=== PATIENT | female | born 1975 | race Caucasian/White ===

== ENCOUNTER 2017-05-28 12:42 | Observation (INO) | payer BC ==
[2017-05-28] MEDS ORDERED: SODIUM CHLORIDE 0.9% 1,000 ML IV STA (13:15)
[2017-05-28] MEDS ORDERED: ONDANSETRON 4 MG/2 ML VIAL IVP STA ×2 (13:15→14:36)
[2017-05-28] MEDS ORDERED: ACETAMINOPHEN IV (For NPO) 1,000 MG in EMPTY BAG 1 BAG IVPB STA (13:16)
--- NOTE | 2017-05-28 13:18 | ED ---
General Adult HPI - General Source: patient, RN notes reviewed Mode of arrival: wheelchair Limitations: no limitations <Alexis Guido - Last Filed: 05/28/17 14:51> <Robbie Dior - Last Filed: 05/28/17 15:48> - General Chief complaint: Abdominal Pain Stated complaint: Abdominal pain/nausea Time Seen by Provider: 05/28/17 13:06 - History of Present Illness Initial comments: Patient is a 42-year-old female who presents emergency room today with a chief complaint of increased abdominal pain that started yesterday. Doesn't look pain the upper abdomen. States began having symptoms of nausea vomiting this morning. States symptoms started after eating pizza last night. She should never had similar symptoms in the past. She denies any other complaints or associated symptoms at this time. Patient denies any recent fever, chills, shortness of breath, chest pain, back pain, numbness or tingling, dysuria or hematuria, constipation or diarrhea, headaches or visual changes, or any other complaints. (Alexis Guido) - Related Data Home Medications Medication Instructions Recorded Confirmed LORazepam [Ativan] 2 mg PO BID PRN 06/25/15 05/28/17 Sertraline [Zoloft] 150 mg PO HS 06/25/15 05/28/17 buPROPion XL [Wellbutrin XL] 150 mg PO HS 06/25/15 05/28/17 Acetaminophen Tab [Tylenol Tab] 1,000 mg PO Q6HR PRN 05/28/17 05/28/17 Calcium Carbonate [Tums] 1,000 mg PO TID PRN 05/28/17 05/28/17 Allergies Allergy/AdvReac Type Severity Reaction Status Date / Time No Known Allergies Allergy Verified 05/28/17 13:03 Review of Systems ROS Other: All systems not noted in ROS Statement are negative. <Alexis Guido - Last Filed: 05/28/17 14:51> ROS Other: All systems not noted in ROS Statement are negative. <Robbie Dior - Last Filed: 05/28/17 15:48> ROS Statement: Those systems with pertinent positive or pertinent negative responses have been documented in the HPI. Past Medical History Past Medical History: No Reported History Additional Past Medical History / Comment(s): ADHD, 2 TOP FRONT TEETH ARE VENEERS History of Any Multi-Drug Resistant Organisms: None Reported Past Surgical History: No Surgical Hx Reported Additional Past Surgical History / Comment(s): LAPROSCOPY Past Anesthesia/Blood Transfusion Reactions: No Reported Reaction Past Psychological History: ADD/ADHD, Anxiety Smoking Status: Never smoker Past Alcohol Use History: Occasional Past Drug Use History: None Reported - Past Family History Mother Family Medical History: No Reported History Father Family Medical History: Coronary Artery Disease (CAD), Hypertension Additional Family Medical History / Comment(s): CARDIAC STENTS,STROKE BEHIND HIS EYE <Alexis Guido - Last Filed: 05/28/17 14:51> General Exam Limitations: no limitations <Alexis Guido - Last Filed: 05/28/17 14:51> <Robbie Dior - Last Filed: 05/28/17 15:48> - General Exam Comments Initial Comments: General: The patient is awake and alert, in mild distress. Eye: Pupils are equal, round and reactive to light, extra-ocular movements are intact. No nystagmus. There is normal conjunctiva bilaterally. No signs of icterus. Ears, nose, mouth and throat: There are moist mucous membranes and no oral lesions. Neck: The neck is supple, there is no tenderness or JVD. Cardiovascular: There is a regular rate and rhythm. No murmur, rub or gallop is appreciated. Respiratory: Lungs are clear to auscultation, respirations are non-labored, breath sounds are equal. No wheezes, stridor, rales, or rhonchi. Gastrointestinal: Normal appearance abdomen. Normal bowel sounds. Abdomen soft on palpation. Patient does have tenderness epigastrically in greatest in right upper quadrant. No rebound tenderness. No guarding. Musculoskeletal: Normal ROM, no tenderness. Strength 5/5. Sensation intact. Pulses equal bilaterally 2+. Neurological: A&O x 3. CN II-XII intact, There are no obvious motor or sensory deficits. Coordination appears grossly intact. Speech is normal. Skin: Skin is warm and dry and no rashes or lesions are noted. Psychiatric: Cooperative, appropriate mood & affect, normal judgment. (Alexis Guido) Course <Alexis Guido - Last Filed: 05/28/17 14:51> <Robbie Dior - Last Filed: 05/28/17 15:48> Vital Signs 05/28/17 05/28/17 12:47 15:38 Temperature 97.7 F 97.2 F L Pulse Rate 79 93 Respiratory 20 18 Rate Blood Pressure 160/93 152/72 O2 Sat by Pulse 96 96 Oximetry - Reevaluation(s) Reevaluation #1: 05/28/17 15:47 PA supervision: I did personally do a [id number] evaluation the patient did discuss [employer] her and her . Patient does demonstrate evidence of cholelithiasis with sludge as well as right upper quadrant pain to palpation. I did discuss the case with surgery on-call patient will be admitted she'll be nothing by mouth. (Robbie Dior) Medical Decision Making - Lab Data Result diagrams: 05/28/17 13:33 05/28/17 13:33 <Alexis Guido - Last Filed: 05/28/17 14:51> - Lab Data Result diagrams: 05/28/17 13:33 05/28/17 13:33 <Robbie Dior - Last Filed: 05/28/17 15:48> - Medical Decision Making The patient lives been reviewed are unremarkable. Patient still experiencing some discomfort in the epigastric and right upper quadrants. Patient is tender in the right upper quadrant. Patient ultrasound does show evidence of a tumefactive gallbladder with sludge. (Alexis Guido) - Lab Data Lab Results 05/28/17 05/28/17 05/28/17 Range/Units 13:33 13:33 13:42 WBC 9.5 (3.8-10.6) k/uL RBC 4.19 (3.80-5.40) m/uL Hgb 13.2 (11.4-16.0) gm/dL Hct 36.1 (34.0-46.0) % MCV 86.2 (80.0-100.0) fL MCH 31.5 (25.0-35.0) pg MCHC 36.5 (31.0-37.0) g/dL RDW 13.1 (11.5-15.5) % Plt Count 276 (150-450) k/uL Neutrophils % 76 % Lymphocytes % 15 % Monocytes % 6 % Eosinophils % 1 % Basophils % 0 % Neutrophils # 7.2 (1.3-7.7) k/uL Lymphocytes # 1.4 (1.0-4.8) k/uL Monocytes # 0.6 (0-1.0) k/uL Eosinophils # 0.1 (0-0.7) k/uL Basophils # 0.0 (0-0.2) k/uL Sodium 142 (137-145) mmol/L Potassium 4.1 (3.5-5.1) mmol/L Chloride 107 (98-107) mmol/L Carbon Dioxide 24 (22-30) mmol/L Anion Gap 11 mmol/L BUN 11 (7-17) mg/dL Creatinine 0.69 (0.52-1.04) mg/dL Est GFR (CKD-EPI)AfAm >90 (>60 ml/min/1.73 sqM) Est GFR (CKD-EPI)NonAf >90 (>60 ml/min/1.73 sqM) Glucose 106 H (74-99) mg/dL Calcium 9.7 (8.4-10.2) mg/dL Total Bilirubin 0.3 (0.2-1.3) mg/dL AST 19 (14-36) U/L ALT 25 (9-52) U/L Alkaline Phosphatase 63 (38-126) U/L Total Protein 7.6 (6.3-8.2) g/dL Albumin 4.3 (3.5-5.0) g/dL Amylase 44 (30-110) U/L Lipase 78 (23-300) U/L Urine Color Yellow Urine Appearance Clear (Clear) Urine pH 5.5 (5.0-8.0) Ur Specific [place] 1.018 (1.001-1.035) Urine Protein Negative (Negative) Urine Glucose (UA) Negative (Negative) Urine Ketones Negative (Negative) Urine Blood Trace H (Negative) Urine Nitrite Negative (Negative) Urine Bilirubin Negative (Negative) Urine Urobilinogen <2.0 (<2.0) mg/dL Ur Leukocyte Esterase Negative (Negative) Urine RBC <1 (0-5) /hpf Ur Squamous Epith Cells <1 (0-4) /hpf Urine Mucus Occasional H (None) /hpf Disposition Time of Disposition: 14:53 <Alexis Guido - Last Filed: 05/28/17 14:51> <Robbie Dior - Last Filed: 05/28/17 15:48> Clinical Impression: Cholelithiasis Disposition: ADMITTED IP TO THIS [facility] Condition: Good Referrals: Lupe Kapoor III, MD [Primary Care Provider] - 1-2 days
[2017-05-28 13:48] LABS: Basophils % (A) 0 %; Eosinophils # (A) 0.1 k/uL (0-0.7); Eosinophils % (A) 1 %; HCT 36.1 % (34.0-46.0); HGB 13.2 gm/dL (11.4-16.0); Lymphocytes # (A) 1.4 k/uL (1.0-4.8); Lymphocytes % (A) 15 %; MCH 31.5 pg (25.0-35.0); MCHC 36.5 g/dL (31.0-37.0); MCV 86.2 fL (80.0-100.0); Mean Platelet Volume 6.6; Monocytes # (A) 0.6 k/uL (0-1.0); Monocytes % (A) 6 %; Neutrophils # (A) 7.2 k/uL (1.3-7.7); Neutrophils % (A) 76 %; Platelet Count 276 k/uL (150-450); RBC 4.19 m/uL (3.80-5.40); RDW 13.1 % (11.5-15.5); WBC 9.5 k/uL (3.8-10.6)
[2017-05-28 13:59] LABS: ALT 25 U/L (9-52); AST 19 U/L (14-36); Albumin 4.3 g/dL (3.5-5.0); Alkaline Phosphatase 63 U/L (38-126); Amylase 44 U/L (30-110); Anion Gap 11 mmol/L; Blood Urea Nitrogen 11 mg/dL (7-17); Calcium 9.7 mg/dL (8.4-10.2); Carbon Dioxide 24 mmol/L (22-30); Chloride 107 mmol/L (98-107); Glucose 106 mg/dL (74-99); Lipase 78 U/L (23-300); Potassium 4.1 mmol/L (3.5-5.1); Sodium 142 mmol/L (137-145); Total Bilirubin 0.3 mg/dL (0.2-1.3); Total Protein 7.6 g/dL (6.3-8.2)
[2017-05-28 14:01] LABS: Appearance,Urine Clear (Clear); Bilirubin,Urine Negative (Negative); Blood,Urine Trace (Negative); Color,Urine Yellow; Glucose,Urine (UA) Negative (Negative); Ketones,Urine Negative (Negative); Leukocyte Esterase,Urine Negative (Negative); Mucus,Urine Occasional /hpf; Nitrite,Urine Negative (Negative); PH, Urine 5.5 (5.0-8.0); Protein,Urine Negative (Negative); RBC,Urine <1 /hpf (0-5); Specific Gravity,Urine 1.018 (1.001-1.035); Squamous Epithelial Cell,Urine <1 /hpf (0-4); Urobilinogen,Urine <2.0 mg/dL (<2.0)
--- NOTE | 2017-05-28 14:20 | US ---
EXAMINATION TYPE: US abdomen limited DATE OF EXAM: 05/28/2017 COMPARISON: NONE CLINICAL HISTORY: Pain. epigastric pain, N/V EXAM MEASUREMENTS: Liver Length: 19.8 cm Gallbladder Wall: 0.3 cm CBD: 0.6 cm Right Kidney: 9.6 x 3.8 x 5.2 cm Pancreas: only head portion seen wnl, the rest is obscured by bowel gas Liver: difficult to penetrate, enlarged. This most commonly relates to hepatic steatosis and limits evaluation for underlying hepatic masses. Gallbladder: multiple mobile shadowing stones and sludge ball seen Evidence for sonographic Aquino's sign: Yes CBD: wnl Right Kidney: No hydronephrosis or masses seen IMPRESSION: 1. Mobile tumefactive gallbladder sludge and cholelithiasis without sonographic evidence of acute cho lecystitis. 2. Findings most compatible with mild degree of hepatic steatosis.
[2017-05-28] MEDS ORDERED: MORPHINE SULFATE 4 MG/ML SYRINGE IV STA (14:36)
[2017-05-28] MEDS ORDERED: NALOXONE 0.4 MG/ML 1 ML VIAL IV PRN (14:54)
[2017-05-28] MEDS: SODIUM CHLORIDE 0.9% 1,000 ML IV ONE (15:29)
[2017-05-28 16:30] VITALS: BMI 35.6
[2017-05-28] MEDS ORDERED: CALCIUM CARBONATE 500 MG CHEWABLE PO PRN (17:09)
[2017-05-28] MEDS ORDERED: LORazepam 1 MG TAB PO PRN (17:09)
[2017-05-28] MEDS: SERTRALINE 50 MG TAB PO SCH (20:02)
[2017-05-28] MEDS: buPROPion XL 300 MG TAB.ER.24H PO SCH (20:02)
[2017-05-28] MEDS: MORPHINE SULFATE/PF 10MG/10ML VL IV PRN (20:02)
[2017-05-28] MEDS: PANTOPRAZOLE 40 MG/10 ML VIAL IVP SCH (22:15)
[2017-05-28] MEDS: HEPARIN SODIUM,PORCINE 5,000 UNIT/ML 1 ML VIAL SQ SCH (22:15)
[2017-05-29] MEDS: MORPHINE SULFATE/PF 10MG/10ML VL IV PRN ×4 (00:50→20:36)
[2017-05-29] MEDS: ONDANSETRON 4 MG/2 ML VIAL IVP PRN ×3 (01:46→20:40)
[2017-05-29 06:36] LABS: Basophils % (A) 0 %; Eosinophils # (A) 0.2 k/uL (0-0.7); Eosinophils % (A) 3 %; HCT 32.3 % (34.0-46.0); HGB 11.1 gm/dL (11.4-16.0); Lymphocytes # (A) 2.4 k/uL (1.0-4.8); Lymphocytes % (A) 33 %; MCH 30.2 pg (25.0-35.0); MCHC 34.4 g/dL (31.0-37.0); MCV 87.7 fL (80.0-100.0); Mean Platelet Volume 7.3; Monocytes # (A) 0.3 k/uL (0-1.0); Monocytes % (A) 4 %; Neutrophils # (A) 4.1 k/uL (1.3-7.7); Neutrophils % (A) 57 %; Platelet Count 222 k/uL (150-450); RBC 3.69 m/uL (3.80-5.40); RDW 13.1 % (11.5-15.5); WBC 7.2 k/uL (3.8-10.6)
[2017-05-29 07:04] LABS: ALT 30 U/L (9-52); AST 15 U/L (14-36); Albumin 3.5 g/dL (3.5-5.0); Alkaline Phosphatase 54 U/L (38-126); Anion Gap 6 mmol/L; Blood Urea Nitrogen 6 mg/dL (7-17); Calcium 8.6 mg/dL (8.4-10.2); Carbon Dioxide 26 mmol/L (22-30); Chloride 107 mmol/L (98-107); Glucose 89 mg/dL (74-99); Potassium 3.7 mmol/L (3.5-5.1); Sodium 139 mmol/L (137-145); Total Bilirubin 0.2 mg/dL (0.2-1.3); Total Protein 6.4 g/dL (6.3-8.2)
[2017-05-29] MEDS: ACETAMINOPHEN TAB 325 MG TAB PO PRN ×2 (07:10→13:38)
[2017-05-29] MEDS: PANTOPRAZOLE 40 MG/10 ML VIAL IVP SCH (08:10)
[2017-05-29] MEDS: HEPARIN SODIUM,PORCINE 5,000 UNIT/ML 1 ML VIAL SQ SCH ×2 (08:11→20:52)
--- NOTE | 2017-05-29 08:52 | CONS ---
CONSULTATION DATE OF SERVICE: 05/28/2017. THE REASON FOR CONSULTATION: Advice regarding anxiety depression and other medical issues requested by Dr. Macias. HISTORY OF PRESENT ILLNESS: This is 42-year-old woman with a past medical history of ADHD, history of ADD, history of anxiety, depression being followed by Dr. Kapoor and Marichuy Vinson in the outpatient setting was admitted with abdominal pain to [facility]. The pain started yesterday which is in the right upper quadrant and associated with some nausea, vomiting. Patient came to [facility] and ultrasound of the abdomen showed mobile tumefactive gallbladder sludge and cholelithiasis without any sonographic evidence of acute cholecystitis. Patient was evaluated by Surgery, Dr. Macias and admitted for further evaluation. There is no history of fever, rigors, chills. There is no headache, loss of consciousness, chest pain, palpitations, hematochezia or melena. PAST MEDICAL HISTORY: ADD, ADHD, anxiety and depression. MEDICATIONS: Medications prior to admission: 1. Wellbutrin XL 300 mg q.h.s. 2. Zoloft 150 mg q.h.s. 3. Ativan 2 mg b.i.d. p.r.n. 4. Tums 1000 mg p.o. t.i.d. p.r.n. 5. Tylenol 1000 mg q.6 p.r.n. ALLERGIES: Allergies are none. FAMILY HISTORY: History of cardiac stents and strokes. SOCIAL HISTORY: No history of smoking. No history of alcohol intake. REVIEW OF SYSTEMS: ENT: No diminished hearing or diminished vision. CARDIOVASCULAR SYSTEM: No angina or palpitations. RESPIRATORY SYSTEM: No cough or hemoptysis. GI: As mentioned earlier. : No dysuria. NERVOUS SYSTEM: No numbness or weakness. ALLERGY/IMMUNOLOGY: No history of asthma. MUSCULOSKELETAL: As mentioned earlier. HEMATOLOGY/ONCOLOGY: No history of anemia. ENDOCRINE: No history of diabetes or hypothyroidism. CONSTITUTIONAL: As mentioned earlier. DERMATOLOGY: Negative. RHEUMATOLOGY: Negative. PSYCHIATRY: As mentioned earlier. PHYSICAL EXAMINATION: The patient is alert and oriented x3. Pulse 76, blood pressure 145/94, respirations 16, temperature 97.4, pulse ox 97% on room air. HEENT: Conjunctivae normal. Oral mucosa moist. NECK: No jugular venous distention. No thyroid enlargement. No carotid bruit. CARDIOVASCULAR SYSTEM: S1 and S2 muffled. No S3, no S4. RESPIRATORY SYSTEM: Breath sounds diminished at the bases. No No rhonchi. No crackles. ABDOMEN: Soft. Mild diffuse discomfort on right upper quadrant. No guarding. No rigidity. No mass palpable. Bowel sounds present. LEGS: No edema, no swelling. NERVOUS SYSTEM: Higher functions as mentioned earlier. Moves all 4 limbs. No focal motor or sensory deficits. LYMPHATICS: No lymphadenopathy of the neck, axillae or groin. SKIN: No ulcer, rash or bleeding. LABS: CBC within normal limits. Glucose 106. UA noted. ASSESSMENT: 1. Right upper quadrant abdominal pain, possible acute cholelithiasis. 2. History of attention deficit disorder, attention deficit hyperactivity disorder. 3. History of anxiety, depression. RECOMMENDATIONS AND DISCUSSION: In this 42-year-old woman who presented with multiple medical issues at this time I recommend to continue current medication, continued symptomatic treatment, resume home medications, DVT prophylaxis. We will follow the patient closely. Incentive spirometry. I would also recommend proton pump inhibitors and the patient may be asked to follow up with Dr. Marichuy Vinson after discharge. Thank you Dr. Macias for letting us participate in the care of this patient. MMODL / IJN: [id number] /
--- NOTE | 2017-05-29 16:33 | P.GSHP ---
History of Present Illness H&P Date: 05/28/17 Chief Complaint: Right upper quadrant pain This a 42-year-old female who's had intermittent problems with right upper quadrant pain. Patient was worked up in the emergency room found evidence of cholelithiasis. Patient's been admitted to the hospital for cholelithiasis and chronic cholecystitis. Past Medical History Past Medical History: No Reported History Additional Past Medical History / Comment(s): ADHD, 2 TOP FRONT TEETH ARE VENEERS History of Any Multi-Drug Resistant Organisms: None Reported Past Surgical History: No Surgical Hx Reported Additional Past Surgical History / Comment(s): LAPROSCOPY Past Anesthesia/Blood Transfusion Reactions: No Reported Reaction Past Psychological History: ADD/ADHD, Anxiety, Depression Additional Psychological History / Comment(s): PT LIVES AT HOME 3 CHILDREN. 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 Smoking Status: Never smoker Past Alcohol Use History: Occasional Past Drug Use History: None Reported - Past Family History Mother Family Medical History: No Reported History Father Family Medical History: Coronary Artery Disease (CAD), Hypertension Additional Family Medical History / Comment(s): CARDIAC STENTS,STROKE BEHIND HIS EYE Medications and Allergies Home Medications Medication Instructions Recorded Confirmed Type LORazepam [Ativan] 2 mg PO BID PRN 06/25/15 05/28/17 History Sertraline [Zoloft] 150 mg PO HS 06/25/15 05/28/17 History Acetaminophen Tab [Tylenol Tab] 1,000 mg PO Q6HR PRN 05/28/17 05/28/17 History Calcium Carbonate [Tums] 1,000 mg PO TID PRN 05/28/17 05/28/17 History buPROPion HCL [Wellbutrin XL] 300 mg PO HS 05/28/17 05/28/17 History Allergies Allergy/AdvReac Type Severity Reaction Status Date / Time No Known Allergies Allergy Verified 05/28/17 16:31 Surgical - Exam Vital Signs Temp Pulse Resp BP Pulse Ox 97.7 F 79 20 160/93 96 05/28/17 12:47 05/28/17 12:47 05/28/17 12:47 05/28/17 12:47 05/28/17 12:47 - General well developed, no distress - Eyes PERRL - ENT normal pinna - Neck no masses - Respiratory normal expansion - Cardiovascular Rhythm: regular - Abdomen Mild right upper quadrant tenderness Abdomen: soft Results - Labs 05/29/17 06:25 05/29/17 06:25 Abnormal Lab Results - Last 24 Hours (Table) 05/29/17 05/29/17 Range/Units 06:25 06:25 RBC 3.69 L (3.80-5.40) m/uL Hgb 11.1 L (11.4-16.0) gm/dL Hct 32.3 L (34.0-46.0) % BUN 6 L (7-17) mg/dL Diabetes panel 05/29/17 Range/Units 06:25 Sodium 139 (137-145) mmol/L Potassium 3.7 (3.5-5.1) mmol/L Chloride 107 (98-107) mmol/L Carbon Dioxide 26 (22-30) mmol/L BUN 6 L (7-17) mg/dL Creatinine 0.70 (0.52-1.04) mg/dL Glucose 89 (74-99) mg/dL Calcium 8.6 (8.4-10.2) mg/dL AST 15 (14-36) U/L ALT 30 (9-52) U/L Alkaline Phosphatase 54 (38-126) U/L Total Protein 6.4 (6.3-8.2) g/dL Albumin 3.5 (3.5-5.0) g/dL Calcium panel 05/29/17 Range/Units 06:25 Calcium 8.6 (8.4-10.2) mg/dL Albumin 3.5 (3.5-5.0) g/dL Pituitary panel 05/29/17 Range/Units 06:25 Sodium 139 (137-145) mmol/L Potassium 3.7 (3.5-5.1) mmol/L Chloride 107 (98-107) mmol/L Carbon Dioxide 26 (22-30) mmol/L BUN 6 L (7-17) mg/dL Creatinine 0.70 (0.52-1.04) mg/dL Glucose 89 (74-99) mg/dL Calcium 8.6 (8.4-10.2) mg/dL Adrenal panel 05/29/17 Range/Units 06:25 Sodium 139 (137-145) mmol/L Potassium 3.7 (3.5-5.1) mmol/L Chloride 107 (98-107) mmol/L Carbon Dioxide 26 (22-30) mmol/L BUN 6 L (7-17) mg/dL Creatinine 0.70 (0.52-1.04) mg/dL Glucose 89 (74-99) mg/dL Calcium 8.6 (8.4-10.2) mg/dL Total Bilirubin 0.2 (0.2-1.3) mg/dL AST 15 (14-36) U/L ALT 30 (9-52) U/L Alkaline Phosphatase 54 (38-126) U/L Total Protein 6.4 (6.3-8.2) g/dL Albumin 3.5 (3.5-5.0) g/dL - Imaging US - abdomen: report reviewed (Cholelithiasis) Assessment and Plan Assessment: Right quadrant pain Cholelithiasis Patient will undergo laparoscopic cholecystectomy..
--- NOTE | 2017-05-29 16:34 | P.PN ---
Progress Note - Text Progress Note Date: 05/29/17 The patient was scheduled for laparoscopic cholecystectomy today. However due to the large number of cases in the OR her case cannot be performed until late tonight. It was decided to cancel her case for today and at her on for laparoscopic cholecystectomy tomorrow at 7 AM. On exam her vital signs are stable. Her abdomen soft there is minimal lower quadrant tenderness. Chronic cholecystitis with cholelithiasis. Patient will undergo laparoscopic ostectomy in the a.m.
--- NOTE | 2017-05-29 17:13 | PN ---
PROGRESS NOTE DATE OF SERVICE: 05/29/2017 This 42-year-old woman was admitted with right upper quadrant pain, possible acute cholecystitis is slated for surgery today. No chest pain. No palpitations. No fever. EXAM: Alert and oriented x3. Pulse 79, blood pressure 129/72, respiration 18, temp 97.2, pulse ox 93% on room air. HEENT: Conjunctivae normal. NECK: No jugular venous distention. CARDIOVASCULAR: S1, S2. RESPIRATORY: Breath sounds diminished in the bases. No rhonchi, no crackles. ABDOMEN: Soft, minimal discomfort. No guarding. No mass palpable. LEGS: No edema. NERVOUS SYSTEM: No focal deficits. LABS: Hemoglobin 11.1. ASSESSMENT: 1. Right upper quadrant abdominal pain possible acute cholelithiasis. 2. History of attention deficit disorder, attention deficit hyperactivity disorder. RECOMMENDATIONS AND DISCUSSION: This 42-year-old woman who presented with multiple medical issues, at this time I recommend to continue current medication, DVT prophylaxis. Incentive spirometry. Closely follow with Surgery. Guarded prognosis. Further recommendations to follow. MMODL / IJN: [id number] /
[2017-05-29] MEDS: buPROPion XL 300 MG TAB.ER.24H PO SCH (20:41)
[2017-05-29] MEDS: SERTRALINE 50 MG TAB PO SCH (20:41)
[2017-05-30] MEDS: ACETAMINOPHEN TAB 325 MG TAB PO PRN ×2 (00:06→14:44)
[2017-05-30] MEDS: SODIUM CHLORIDE 0.9% 1,000 ML IV ONE (02:31)
[2017-05-30] MEDS ORDERED: SCOPOLAMINE 1.5MG/72HR PATCH TRANSDERM ONE (05:26)
[2017-05-30] MEDS ORDERED: ONDANSETRON 4 MG/2 ML VIAL IVP ONE (05:26)
[2017-05-30] MEDS ORDERED: DEXAMETHASONE SOD PHOSPHATE 10 MG/ML 1 ML VIAL IV ONE (05:26)
[2017-05-30] MEDS ORDERED: fentaNYL (PF) 50 MCG/ML 20 ML VIAL IVP PRN (05:26)
[2017-05-30] MEDS: ONDANSETRON 4 MG/2 ML VIAL IVP PRN (06:20)
[2017-05-30] MEDS ORDERED: PROPOFOL 10 MG/ML 20 ML VIAL IV ONE (07:09)
[2017-05-30] MEDS ORDERED: GLYCOPYRROLATE 0.2 MG/ML 2 ML VIAL ONE (07:09)
[2017-05-30] MEDS ORDERED: NEOSTIGMINE 1 MG/ML 10 ML VIAL ONE (07:09)
[2017-05-30] MEDS ORDERED: LIDOCAINE 1% INJ 10MG/ML (20 ML MDV) ONE (07:09)
[2017-05-30] MEDS ORDERED: SUCCINYLCHOLINE CHLORIDE 100 MG/5 ML SYR IV ONE (07:09)
[2017-05-30] MEDS ORDERED: HEPARIN SODIUM,PORCINE 5,000 UNIT/ML 1 ML VIAL ONE (07:09)
[2017-05-30] MEDS ORDERED: ceFAZolin 1,000 MG VIAL ONE (07:09)
[2017-05-30] MEDS ORDERED: MIDAZOLAM 2 MG/2 ML VIAL ONE (07:09)
[2017-05-30] MEDS ORDERED: ROCURONIUM BROMIDE 10 MG/ML 10 ML VIAL IV ONE (07:09)
[2017-05-30] MEDS ORDERED: fentaNYL (PF) 50 MCG/ML 2 ML AMP ONE (07:09)
[2017-05-30] MEDS ORDERED: SODIUM CHLORIDE 0.9% 50 ML with ceFAZolin 2,000 MG IV ONE ×2 (07:16)
[2017-05-30] MEDS ORDERED: IV FLUID CONTINUATION 700 ML IV ONE (07:16)
[2017-05-30] MEDS ORDERED: BUPIVACAINE (PF) 0.25% 30 ML VIAL SQ ONE (07:27)
[2017-05-30] MEDS ORDERED: diphenhydrAMINE 50 MG/ML 1 ML VIAL IVP ONE (08:09)
[2017-05-30] MEDS ORDERED: KETOROLAC 30 MG/ML 1 ML VIAL IVP ONE (08:10)
[2017-05-30] MEDS: MEPERIDINE 50 MG/ML SYRINGE IVP ONE ×2 (08:13→08:18)
[2017-05-30] MEDS: LACTATED RINGERS 1,000 ML IV SCH ×2 (08:29→08:48)
[2017-05-30 10:43] VITALS: TEMP 97.7
[2017-05-30 10:45] VITALS: RESP 18
[2017-05-30] MEDS: PANTOPRAZOLE 40 MG/10 ML VIAL IVP SCH (11:38)
[2017-05-30] MEDS: HEPARIN SODIUM,PORCINE 5,000 UNIT/ML 1 ML VIAL SQ SCH (11:43)
--- NOTE | 2017-05-30 11:47 | P.DS ---
Providers Date of admission: 05/28/17 15:47 Expected date of discharge: 05/30/17 Attending physician: Jose Carlos Macias Consults: 05/28/17 14:54 Consult Physician Stat Consulting Provider: Joes Carlos Macias Consult Reason/Comments: cholelithiasis Do you want consulting provider notified?: Yes 05/28/17 17:08 Consult Physician Routine Consulting Provider: Karey Johnson Consult Reason/Comments: medical management Do you want consulting provider notified?: Yes [facility]: 42-year-old female presented on the day of admission for chief complaint of developing intermittent episodes of right upper quadrant abdominal pain. Workup in the emergency room showed evidence of cholelithiasis. Patient was admitted for cholelithiasis and chronic cholecystitis. On May 30 patient underwent a laparoscopic cholecystectomy. No postop events. Patient was felt to be hemodynamically stable and appropriate to proceed with a discharge on May 30 Impression discharge diagnosis Present on admission intermittent episodes of right upper quadrant abdominal pain suspect due to cholelithiasis and chronic cholecystitis Postop laparoscopic cholecystectomy May 30 Obesity BMI 35 The above impression and plan of care have been discussed and directed by signing physician. Amy Joyner nurse practitioner acting as scribe for signing physician. Patient Condition at Discharge: Good Plan - Discharge Summary Discharge Rx Participant: Yes New Discharge Prescriptions: New Docusate [Colace] 100 mg PO BID #20 capsule HYDROcodone/APAP 7.5-325MG [[place] 7.5] 1 each PO Q4H PRN #30 tab PRN Reason: Pain No Action LORazepam [Ativan] 2 mg PO BID PRN PRN Reason: Anxiety Sertraline [Zoloft] 150 mg PO HS Calcium Carbonate [Tums] 1,000 mg PO TID PRN PRN Reason: Heartburn Acetaminophen Tab [Tylenol Tab] 1,000 mg PO Q6HR PRN PRN Reason: Pain buPROPion HCL [Wellbutrin XL] 300 mg PO HS Discharge Medication List LORazepam [Ativan] 2 mg PO BID PRN 06/25/15 [History] Sertraline [Zoloft] 150 mg PO HS 06/25/15 [History] Acetaminophen Tab [Tylenol Tab] 1,000 mg PO Q6HR PRN 05/28/17 [History] Calcium Carbonate [Tums] 1,000 mg PO TID PRN 05/28/17 [History] buPROPion HCL [Wellbutrin XL] 300 mg PO HS 05/28/17 [History] Docusate [Colace] 100 mg PO BID #20 capsule 05/30/17 [Rx] HYDROcodone/APAP 7.5-325MG [[place] 7.5] 1 each PO Q4H PRN #30 tab 05/30/17 [Rx] Follow up Appointment(s)/Referral(s): Lupe Kapoor III, MD [Primary Care Provider] - 1-2 days Jose Carlos Macias MD [STAFF PHYSICIAN] - 1 Week Patient Instructions/Handouts: *Surgery [facility] - Laparoscopic Cholecystectomy Discharge Instructions, *Surgery [facility] - (Anesthesia) Discharge Instructions Outpatient Surgery Activity/Diet/Wound Care/Special Instructions: No tub bath for six weeks. Shower daily. No lifting over 10 pounds for the next 6 weeks. Advance diet slowly avoiding high-fat foods Avoid constipation use [id number] stool softeners if needed May use ice packs to surgical site. No driving while taking narcotic for pain. Discharge Disposition: HOME SELF-CARE
[2017-05-30 13:27] VITALS: BP 125/83; PULSE 80
--- NOTE | 2017-05-30 13:29 | PN ---
PROGRESS NOTE DATE OF SERVICE: 05/30/2017 This 42-year-old woman who was admitted with cholelithiasis, underwent laparoscopic cholecystectomy. No chest pain or palpitations. No fever. PHYSICAL EXAM: On exam, alert and oriented x3. Pulse 71, blood pressure 141/77, respirations 17, temperature 97.7, pulse ox 94% on room air. HEENT: Conjunctivae normal. Neck: No jugular venous distention. CARDIOVASCULAR: S1 and S2 muffled. RESPIRATORY: Breath sounds diminished at the bases. No rhonchi, no crackles. ABDOMEN: Soft, status post surgery. LEGS: No edema, no swelling. NERVOUS SYSTEM: No focal deficits. LABS: Hemoglobin 11.1. Other labs are noted. ASSESSMENT: 1. Right upper quadrant abdominal pain with possible acute cholelithiasis, status post laparoscopic cholecystectomy. 2. History attention deficit disorder, attention deficit hyperactivity disorder. RECOMMENDATIONS AND DISCUSSION: Recommend to continue current medications. Continue symptomatic treatment. Continue incentive spirometry. Closely follow with Dr. Marichuy Vinson in the outpatient setting. Otherwise rest of the recommendations per Surgery. Further recommendations to follow. MMODL / IJN: [id number] /
[2017-05-30] MEDS ORDERED: HYDROcodone/APAP 7.5-325MG 1 EACH TAB PO PRN (14:44)
[2017-05-31] MEDS ORDERED: PANTOPRAZOLE 40 MG TABLET PO SCH (07:30)
== END 2017-05-30 14:50 | disposition home or self-care (01) ==
LOC: EC 12:42 → 6PED 15:47
PROVIDERS: ADMIT Surgery; ATTEND Surgery
DX: K80.10 Calculus of gallbladder with chronic cholecystitis without obstruction (principal); Z68.35 Body mass index [BMI] 35.0-35.9, adult; E66.9 Obesity, unspecified; F90.9 Attention-deficit hyperactivity disorder, unspecified type; Z79.899 Other long term (current) drug therapy; Z82.49 Family history of ischemic heart disease and other diseases of the circulatory system; Z82.3 Family history of stroke; F32.9 Major depressive disorder, single episode, unspecified; F41.9 Anxiety disorder, unspecified
CPT/HCPCS: 47562; 99285; 96375 ×4; 96374 ×2; 96376 ×5; 96361 ×3; 96372 ×2; 36415; 88304; 80053 ×2; 82150; 83690; 85025 ×2; 81001; 81025; 76705; G0378 ×3; J2250; J2270 ×3; J1200; J1644 ×3; J2710; J2175; J2405 ×3; J0690 ×2; J2001; J3010; J1885; J0131; J0330; J2704; C9113 ×3

== ENCOUNTER → 2020-11-23 | Outpatient (CLI) | payer OTHER ==
--- NOTE | 2020-11-25 09:37 | MM ---
Reason for exam: screening (asymptomatic). Baseline mammogram. History: Took hormonal contraceptives for 4 years beginning at age 18. Physical Findings: Nurse did not find any significant physical abnormalities on exam. MG Screening Mammo w CAD Bilateral CC and MLO view(s) were taken. There are scattered fibroglandular densities. There is no discrete abnormality. ASSESSMENT: Negative, BI-RAD 1 RECOMMENDATION: Routine screening mammogram of both breasts in 1 year.
== END | disposition home or self-care (01) ==
LOC: RADMAMWWP 14:20
PROVIDERS: ATTEND Family Medicine
DX: Z12.31 Encounter for screening mammogram for malignant neoplasm of breast (principal)
CPT/HCPCS: 77067

== ENCOUNTER → 2021-01-21 | Outpatient (CLI) | payer OTHER ==
--- NOTE | 2021-01-21 10:55 | US ---
EXAMINATION TYPE: US pelvis complete transvag DATE OF EXAM: 01/21/2021 COMPARISON: NONE CLINICAL HISTORY: N92.0 excessive and frequent menstruation with. TECHNIQUE: Transvaginal (TV) and Transabdominal (TA) . Transabdominal sonographic images of the pel vis were acquired. Transvaginal sonographic images were medically necessary to better assess the fol lowing anatomy: Endometrium Date of LMP: irregular EXAM MEASUREMENTS: Uterus: 9.1x5.0x4.5 cm Endometrial Stripe: 0.7 cm Right Ovary: 3.5x2.6x2.6 cm Left Ovary: 2.1x2.2x1.7 cm Nabothian cyst noted. 1. Uterus: Anteverted wnl 2. Endometrium: wnl 3. Right Ovary: hyperechoic solid region measuring 1.6 x 1.8 cm x 1.5. There is a simple appearing c yst measuring 1.3 x 1.0 cm. 4. Left Ovary: wnl 5. Bilateral Adnexa: wnl 6. Posterior cul-de-sac: small amount of free fluid seen along with within the left adnexa IMPRESSION: 1. Complex cyst right ovary. 2. Solid lesion within the right ovary. Follow-up is recommended.
== END | disposition home or self-care (01) ==
LOC: RADUSWWP 09:38
PROVIDERS: ATTEND Family Medicine
DX: N83.201 Unspecified ovarian cyst, right side (principal)
CPT/HCPCS: 76830; 76856

== ENCOUNTER → 2021-05-26 | Outpatient (CLI) | payer OTHER ==
[2021-05-26 18:54] LABS: Basophils # (A) 0.03 X 10*3/uL (0.00-0.10); Basophils % (A) 0.4 %; Eosinophils # (A) 0.14 X 10*3/uL (0.04-0.35); Eosinophils % (A) 1.9 %; HCT 35.2 % (37.2-46.3); HGB 11.7 g/dL (12.0-15.0); Immature Grans, Automated 0.8 %; Lymphocytes # (A) 2.07 X 10*3/uL (0.90-5.00); Lymphocytes % (A) 27.6 %; MCH 29.9 pg (27.0-32.0); MCHC 33.2 g/dL (32.0-37.0); Mean Platelet Volume 9.2 fL (9.5-12.2); Monocytes # (A) 0.69 X 10*3/uL (0.20-1.00); Monocytes % (A) 9.2 %; NRBC Per 100 WBC 0 /100 WBCS (0.0-0.0); Neutrophils # (A) 4.51 X 10*3/uL (1.80-7.70); Neutrophils % (A) 60.1 %; Platelet Count 199 X 10*3/uL (140-440); RBC 3.91 X 10*6/uL (4.10-5.20); RDW 13.1 % (11.5-14.5)
[2021-05-27 00:34] LABS: Cancer Antigen 125 11.9 U/mL (0.0-30.1)
[2021-05-27 01:41] LABS: % Iron Saturation 16.47 (12.00-45.00); ALT 18 U/L (8-44); AST 20 U/L (13-35); African American GFR (CKD) 121.6 (60.0-200.0); Albumin 4.4 g/dL (3.8-4.9); Albumin/Globulin Ratio 1.45 (1.60-3.17); Alkaline Phosphatase 54 U/L (41-126); BUN/Creat Ratio 17.58 Ratio (12.00-20.00); Blood Urea Nitrogen 12.2 mg/dL (9.0-27.0); Calcium 9.7 mg/dL (8.7-10.3); Carbon Dioxide 21.7 mmol/L (20.0-27.5); Chloride 101 mmol/L (96-109); Glucose 92 mg/dL (70-110); Iron 69 ug/dL (50-170); Non-African American GFR(CKD) 104.9 (60.0-200.0); Potassium 3.9 mmol/L (3.5-5.5); Sodium 136 mmol/L (135-145); Total Iron Binding Capacity 421 ug/dL (228-460); Total Protein 7.4 g/dL (6.2-8.2)
[2021-05-27 02:16] LABS: Follicle Stimulating Hormone 3.3 mIU/mL; Luteinizing Hormone 3.4 mIU/mL
== END | disposition home or self-care (01) ==
LOC: LABWHC1 09:33
PROVIDERS: ATTEND Physician Assistant Medical
DX: D39.10 Neoplasm of uncertain behavior of unspecified ovary (principal); N92.1 Excessive and frequent menstruation with irregular cycle
CPT/HCPCS: 36415; 80053; 83001; 83002; 83540; 83550; 84443; 85025; 86304

== ENCOUNTER → 2021-05-26 | Outpatient (CLI) | payer OTHER ==
--- NOTE | 2021-05-26 09:53 | US ---
EXAMINATION TYPE: US pelvis complete transvag DATE OF EXAM: 05/26/2021 COMPARISON: NONE CLINICAL HISTORY: D39.10 NEOPLSM OF UNCERTAIN BEHAVIOR OF OVARY. TECHNIQUE: Transvaginal (TV) and Transabdominal (TA) . Transabdominal sonographic images of the pel vis were acquired. Transvaginal sonographic images were medically necessary to better assess the fol lowing anatomy: Ovaries Date of LMP: 04/22/2021, EXAM MEASUREMENTS: Uterus: 8.7 x 5.7 x 4.8 cm Endometrial Stripe: 0.8 cm Right Ovary: 2.6 x 2.0 x 2.2 cm Left Ovary: 2.7 x 1.6 x 2.0 cm 1. Uterus: Anteverted Fundal cystic lesion = 0.7 x 0.8 x 0.5 cm 2. Endometrium: wnl 3. Right Ovary: lesion with peripheral vascular flow = 1.2 x 1.0 x 1.2 cm 4. Left Ovary: follicles 5. Bilateral Adnexa: wnl 6. Posterior cul-de-sac: no free fluid Cervix- nabothian cysts IMPRESSION: 1. Fundal cystic lesion noted. 2. Hyperechoic lesion right ovary may reflect hemorrhagic cyst. Consider follow-up study in 6 weeks.
== END | disposition home or self-care (01) ==
LOC: RADUSWWP 09:07
PROVIDERS: ATTEND Family Medicine
DX: D39.10 Neoplasm of uncertain behavior of unspecified ovary (principal)
CPT/HCPCS: 76830; 76856

== ENCOUNTER → 2021-12-16 | Outpatient (CLI) | payer OTHER ==
[2021-12-16 14:29] LABS: Basophils # (A) 0.06 X 10*3/uL (0.00-0.10); Basophils % (A) 0.6 %; Eosinophils # (A) 0.23 X 10*3/uL (0.04-0.35); Eosinophils % (A) 2.4 %; HCT 35.9 % (37.2-46.3); HGB 11.9 g/dL (12.0-15.0); Immature Grans, Automated 0.2 %; Lymphocytes % (A) 23.8 %; MCH 29.5 pg (27.0-32.0); MCHC 33.1 g/dL (32.0-37.0); MCV 88.9 fL (80.0-97.0); Mean Platelet Volume 8.9 fL (9.5-12.2); Monocytes # (A) 0.81 X 10*3/uL (0.20-1.00); Monocytes % (A) 8.4 %; NRBC Per 100 WBC 0 /100 WBCS (0.0-0.0); Neutrophils # (A) 6.26 X 10*3/uL (1.80-7.70); Neutrophils % (A) 64.6 %; Platelet Count 252 X 10*3/uL (140-440); RBC 4.04 X 10*6/uL (4.10-5.20); WBC 9.68 X 10*3/uL (4.50-10.00)
== END | disposition home or self-care (01) ==
LOC: LABPAT 10:09
PROVIDERS: ATTEND Obstetrics & Gynecology
DX: Z01.812 Encounter for preprocedural laboratory examination (principal)
CPT/HCPCS: 85025

== ENCOUNTER 2021-12-20 06:09 | Day surgery (SDC) | payer OTHER ==
--- NOTE | 2021-12-19 10:06 | P.HPOB ---
History of Present Illness H&P Date: 12/19/21 Chief Complaint: menorrhagia 46 year old presents for D&C hysteroscopy and endometrial ablation with NovaSure. Review of Systems All systems: negative Constitutional: Denies chills, Denies fever Eyes: denies blurred vision, denies pain Ears, nose, mouth and throat: Denies headache, Denies sore throat Cardiovascular: Denies chest pain, Denies shortness of breath Respiratory: Denies cough Gastrointestinal: Denies abdominal pain, Denies diarrhea, Denies nausea, Denies vomiting Genitourinary: Denies dysuria, Denies hematuria Musculoskeletal: Denies myalgias Integumentary: Denies pruritus, Denies rash Neurological: Denies numbness, Denies weakness Psychiatric: Denies anxiety, Denies depression Endocrine: Denies fatigue, Denies weight change Past Medical History Past Medical History: No Reported History Additional Past Medical History / Comment(s): ADHD, 2 TOP FRONT TEETH ARE VENEERS History of Any Multi-Drug Resistant Organisms: None Reported Past Surgical History: Cholecystectomy Additional Past Surgical History / Comment(s): laparascopic surgery checking for endometriosis Past Anesthesia/Blood Transfusion Reactions: No Reported Reaction Smoking Status: Never smoker - Past Family History Mother Family Medical History: No Reported History Father Family Medical History: Coronary Artery Disease (CAD), Hypertension Additional Family Medical History / Comment(s): CARDIAC STENTS,STROKE BEHIND HIS EYE Medications and Allergies Home Medications Medication Instructions Recorded Confirmed Type LORazepam [Ativan] 2 mg PO BID PRN 06/25/15 12/16/21 History Sertraline [Zoloft] 150 mg PO HS 06/25/15 12/16/21 History Acetaminophen Tab [Tylenol Tab] 1,000 mg PO Q6HR PRN 05/28/17 12/16/21 History buPROPion HCL [Wellbutrin XL] 300 mg PO HS 05/28/17 12/16/21 History Allergies Allergy/AdvReac Type Severity Reaction Status Date / Time amoxicillin [From Augmentin] AdvReac Nausea & Verified 12/16/21 14:41 Vomiting clavulanic acid AdvReac Nausea & Verified 12/16/21 14:41 [From Augmentin] Vomiting Exam Osteopathic Statement: *. No significant issues noted on an osteopathic structural exam other than those noted in the History and Physical/Consult. Heart: Regular rate and rhythm Lungs: Clear to auscultation bilaterally Abdomen: Soft, nontender Extremities: Negative Homans sign Assessment and Plan (1) Menorrhagia with irregular cycle Status: Acute Code(s): N92.1 - EXCESSIVE AND FREQUENT MENSTRUATION WITH IRREGULAR CYCLE SNOMED Code(s): 945393099 Plan: D&C hysteroscopy and endometrial ablation with NovaSure
[~2021-12-20 06:09] MED LIST: DEXAMETHASONE SOD PHOSPHATE 4 MG/ML 1 ML VIAL IV ONE; HYDROmorphone 0.5 MG/0.5 ML SYRINGE IVP PRN; LACTATED RINGERS 1,000 ML IV SCH; LIDOCAINE 1% (10MG/ML) FOR IV START INTRADERMA PRN; ONDANSETRON 4 MG/2 ML VIAL IVP ONE; Pre Op ABX Message 1 EACH MISC MISCELLANE ONE; SCOPOLAMINE 1 MG/72 HR PATCH TRANSDERM ONE
[2021-12-20 06:58] VITALS: RESP 16
[2021-12-20] MEDS ORDERED: KETOROLAC 30 MG/ML 1 ML VIAL ONE (07:24)
[2021-12-20] MEDS ORDERED: PROPOFOL 10 MG/ML 20 ML VIAL IV ONE (07:24)
[2021-12-20] MEDS ORDERED: fentaNYL (PF) 50 MCG/ML 2 ML AMP ONE (07:24)
[2021-12-20] MEDS ORDERED: LIDOCAINE 2% INJ 20 MG/ML (2 ML VIAL) ONE (07:24)
[2021-12-20] MEDS ORDERED: MIDAZOLAM HCL 10 MG/10 ML VIAL IV ONE (07:26)
[2021-12-20 08:07] VITALS: TEMP 96.9
--- NOTE | 2021-12-20 08:24 | P.OP ---
Date of Procedure: 12/20/21 Preoperative Diagnosis: 1. menorrhagia Postoperative Diagnosis: 1. menorrhagia Procedure(s) Performed: D&C hysteroscopy and endometrial ablation with NovaSure Anesthesia: MAC Surgeon: Lena Green Estimated Blood Loss (ml): 10 IV fluids (ml): 300 Urine output (ml): 5 Pathology: other (Endometrial curettings) Condition: stable Disposition: PACU Operative Findings: Uterus sounded to 8 cm. Cavity length 6 cm, width 3 cm, time of ablation 53 seconds at 99 W. Adequate ablation after NovaSure. Description of Procedure: Patient is taken the operating room where general anesthesia was obtained withou t difficulty. She was prepped and draped in normal sterile fashion dorsal lithotomy position, legs placed in the candy cane stirrups. Bladder was drained of all urine. Weighted speculum placed in the vagina and the anterior lip the cervix was grasped with serial tooth tenaculum. The uterus sounded to 8 cm and the cervix under 2 cm making the cavity length 6 cm. The cervix was dilated to #8 Hegar dilator. Hysteroscopy was then performed. Both ostia were visualized and there was a smooth contour of the uterus. Sharp curet was then gently used to obtain endometrial curettings. The NovaSure was introduced into the uterus with a cavity length of 6 cm, width 3 cm. after cavity assessment was passed, the time of ablation was 53 seconds at [address]. Hysteroscopy was again performed and adequate ablation was noted. All instruments removed from the vagina. Patient tolerated the procedure well, sponge and instrument counts were correct 2 and she was taken to recovery in stable condition.
[2021-12-20 08:33] VITALS: PULSE 72
[2021-12-20] MEDS ORDERED: LACTATED RINGERS 1,000 ML IV ONE (08:39)
[2021-12-20 09:20] VITALS: BP 124/79
== END 2021-12-20 09:44 | disposition home or self-care (01) ==
LOC: OR 06:09
PROVIDERS: ATTEND Obstetrics & Gynecology
DX: N92.0 Excessive and frequent menstruation with regular cycle (principal); F32.A Depression, unspecified; F90.9 Attention-deficit hyperactivity disorder, unspecified type; Z90.49 Acquired absence of other specified parts of digestive tract; Z82.49 Family history of ischemic heart disease and other diseases of the circulatory system; Z82.3 Family history of stroke; Z79.899 Other long term (current) drug therapy; Z79.1 Long term (current) use of non-steroidal anti-inflammatories (NSAID); Z88.0 Allergy status to penicillin; Z88.1 Allergy status to other antibiotic agents
CPT/HCPCS: 81025; 88305; 58563; J1100; J2405; J3010; J1885; J2704; J1170; J2250; J2001

== ENCOUNTER 2023-03-28 17:19 | Emergency (ER) | payer OTHER ==
[2023-03-28 17:56] VITALS: TEMP 99.1
[2023-03-28 18:48] LABS: ALT 20 U/L (4-34); AST 23 U/L (14-36); African American GFR (CKD) >90 (>60 ml/min/1.73 sqM); Albumin 4.5 g/dL (3.5-5.0); Alkaline Phosphatase 70 U/L (38-126); Anion Gap 13 mmol/L; Blood Urea Nitrogen 9 mg/dL (7-17); Calcium 9.7 mg/dL (8.4-10.2); Carbon Dioxide 20 mmol/L (22-30); Chloride 107 mmol/L (98-107); Glucose 105 mg/dL (74-99); Magnesium 1.9 mg/dL (1.6-2.3); Non-African American GFR(CKD) >90 (>60 ml/min/1.73 sqM); Potassium 3.8 mmol/L (3.5-5.1); Sodium 140 mmol/L (137-145); Total Bilirubin 0.5 mg/dL (0.2-1.3)
--- NOTE | 2023-03-28 19:56 | ED ---
Recheck HPI - General Source: patient Mode of arrival: ambulatory Limitations: no limitations <Jay Canada - Last Filed: 03/28/23 20:06> - General Source: RN notes reviewed, old records reviewed Mode of arrival: ambulatory Limitations: no limitations - History of Present Illness MD Complaint: abnormal lab (Elevated blood pressure) -: days(s) Symptoms Since Prior Visit: no new symptoms Context: planned re-check, called for abnormal lab result (Blood pressure) Associated Symptoms: none <Reed Reed - Last Filed: 04/03/23 16:50> - General Chief Complaint: Recheck/Abnormal Lab/Rx Stated Complaint: HTN/CHEST PAIN Time Seen by Provider: 03/28/23 19:55 - History of Present Illness Initial Comments: Quick note: 47-year-old female with history of hypertension presenting with chief complaint of elevated blood pressure and chest pain. Symptoms started yesterday. She with her PCP yesterday and was prescribed amlodipine. She states that today she is still having some chest discomfort and tightness in the shoulders. Electronically signed Jay Canada PA-C (Jay Canada) This is a 47 show female to the emergency department with no high blood pressure chest pain today she recently started on blood pressure medication but has persistent chest pain here in the emergency during, patient is very concerned for severely elevated blood pressure (Reed Reed) - Related Data Home Medications Medication Instructions Recorded Confirmed LORazepam [Ativan] 2 mg PO BID PRN 06/25/15 12/20/21 Sertraline [Zoloft] 150 mg PO HS 06/25/15 12/20/21 Acetaminophen Tab [Tylenol Tab] 1,000 mg PO Q6HR PRN 05/28/17 12/20/21 buPROPion HCL [Wellbutrin XL] 300 mg PO HS 05/28/17 12/20/21 Previous Rx's Medication Instructions Recorded Ibuprofen [Motrin] 600 mg PO Q6HR PRN #30 tab 12/20/21 lisinopriL [Prinivil] 10 mg PO DAILY #30 tab 03/28/23 Allergies Allergy/AdvReac Type Severity Reaction Status Date / Time amoxicillin [From Augmentin] AdvReac Nausea & Verified 03/28/23 17:39 Vomiting clavulanic acid AdvReac Nausea & Verified 03/28/23 17:39 [From Augmentin] Vomiting Review of Systems ROS Other: All systems not noted in ROS Statement are negative. <CanadaKysylvia - Last Filed: 03/28/23 20:06> ROS Other: All systems not noted in ROS Statement are negative. <Reed Reed - Last Filed: 04/03/23 16:50> ROS Statement: Those systems with pertinent positive or pertinent negative responses have been documented in the HPI. Past Medical History Past Medical History: No Reported History, Hypertension Additional Past Medical History / Comment(s): ADHD, 2 TOP FRONT TEETH ARE VENEERS History of Any Multi-Drug Resistant Organisms: None Reported Past Surgical History: No Surgical Hx Reported Additional Past Surgical History / Comment(s): LAPROSCOPY Past Anesthesia/Blood Transfusion Reactions: No Reported Reaction Past Psychological History: ADD/ADHD, Anxiety, Depression Smoking Status: Never smoker Past Alcohol Use History: Occasional Past Drug Use History: None Reported - Past Family History Mother Family Medical History: No Reported History Father Family Medical History: Coronary Artery Disease (CAD), Hypertension Additional Family Medical History / Comment(s): CARDIAC STENTS,STROKE BEHIND HIS EYE <Jay Canada - Last Filed: 03/28/23 20:06> General Exam Limitations: no limitations <CanadaMahamedrakesh - Last Filed: 03/28/23 20:06> General appearance: alert, in no apparent distress Head exam: Present: atraumatic, normocephalic, normal inspection Eye exam: Present: normal appearance, PERRL, EOMI. Absent: scleral icterus, conjunctival injection, periorbital swelling ENT exam: Present: normal exam, mucous membranes moist Neck exam: Present: normal inspection. Absent: tenderness, meningismus, lymphadenopathy Respiratory exam: Present: normal lung sounds bilaterally. Absent: respiratory distress, wheezes, rales, rhonchi, stridor Cardiovascular Exam: Present: regular rate, normal rhythm, normal heart sounds. Absent: systolic murmur, diastolic murmur, rubs, gallop, clicks GI/Abdominal exam: Present: soft, normal bowel sounds. Absent: distended, tenderness, guarding, rebound, rigid Extremities exam: Present: normal inspection, full ROM, normal capillary refill. Absent: tenderness, pedal edema, joint swelling, calf tenderness Back exam: Present: normal inspection Neurological exam: Present: alert, oriented X3, CN II-XII intact Psychiatric exam: Present: normal affect, normal mood Skin exam: Present: warm, dry, intact, normal color. Absent: rash <Reed Reed - Last Filed: 04/03/23 16:50> - General Exam Comments Initial Comments: Visual Physical Exam Vital signs reviewed General: Well-appearing, nontoxic, no acute distress. Head: Normocephalic, atraumatic Eyes: PERRLA, EOMI ENT: Airway patent Chest: Nonlabored breathing Skin: No visual rash, normal skin tone Neuro: Alert and oriented 3 Musculoskeletal: No gross abnormalities (Jay Canada) Course <Reed Reed - Last Filed: 04/03/23 16:50> Vital Signs 03/28/23 03/28/23 03/28/23 17:35 20:33 21:28 Temperature 99.1 F Pulse Rate 89 82 76 Respiratory 18 20 18 Rate Blood Pressure 173/83 160/95 144/76 O2 Sat by Pulse 98 98 97 Oximetry - Reevaluation(s) Reevaluation #1: Medical records reviewed (Reed Reed) Reevaluation #2: Patient symptoms improved (Reed Reed) Reevaluation #3: Patient informed results questions answered (Reed Reed) Reevaluation #4: Was pt. sent in by a medical professional or institution (, PA, SWAGER OPERATOR, urgent care, hospital, or jail...) When possible be specific @ -no Did you speak to anyone other than the patient for history (EMS, parent, family, police, friend...)? What history was obtained from this source @ -no Did you review nursing and triage notes (agree or disagree)? Why? @ -agree Are old charts reviewed (outside hosp., previous admission, EMS record, old EKG, old radiological studies, urgent care reports/EKG's, jail records)? Report findings @ -yes Differential Diagnosis (chest pain, altered mental status, abdominal pain women, abdominal pain men, vaginal bleeding, weakness, fever, dyspnea, syncope, heada kaylyn, dizziness, GI bleed, back pain, seizure, CVA, palpatations, mental health, musculoskeletal)? @ -prior EKG interpreted by me (3pts min.). @ -yes X-rays interpreted by me (1pt min.). @ -yes negative for acute disease CT interpreted by me (1pt min.). @ -no U/S interpreted by me (1pt. min.). @ -no What testing was considered but not performed or refused? (CT, X-rays, U/S, labs)? Why? @ -none What meds were considered but not given or refused? Why? @ -none Did you discuss the management of the patient with other professionals (professionals i.e. , PA, SWAGER OPERATOR, lab, RT, psych nurse, manager social media, compotype operator, teacher, licensed loan officer assistant, case mgr)? Give summary @ -no Was smoking cessation discussed for >3mins.? @ -no Were there social determinants of health that impacted care today? How? (Homelessness, low income, unemployed, alcoholism, drug addiction, transportation, low edu. Level, literacy, decrease access to med. care, detention, rehab)? @ -none Was there de-escalation of care discussed even if they declined (Discuss DNR or withdrawal of care, Hospice)? DNR status @ -no What co-morbidities impacted this encounter? (DM, HTN, Smoking, COPD, CAD, Cancer, CVA, ARF, Chemo, Hep., AIDS, mental health diagnosis, sleep apnea, morbid obesity)? @ -none Was patient admitted / discharged? Hospital course, mention meds given and route, prescriptions, significant lab abnormalities, going to OR and other pertinent info. @ - 47 female nonspecific chest pain but she does have negative troponin here in the ER, normal x-ray patient can be discharged home she feels currently well, Dese for further evaluation management Discharge Was critical care preformed (if so, how long)? @ -no Undiagnosed new problem with uncertain prognosis? @ -no Drug Therapy requiring intensive monitoring for toxicity (Heparin, Nitro, Insulin, Cardizem)? @ -no Were any procedures done? @ -no Diagnosis/symptom? @ -Chest pain hypertension Acute, or Chronic, or Acute on Chronic? @ -Acute Uncomplicated (without systemic symptoms) or Complicated (systemic symptoms)? @ -Complicated Side effects of treatment? @ -no Exacerbation, Progression, or Severe Exacerbation? @ -exacerbation Poses a threat to life or bodily function? How? (Chest pain, [place], [place], pneumonia, PE, COPD, DKA, ARF, appy, cholecystitis, CVA, Diverticulitis, Homicidal, Suicidal, threat to staff... and all critical care pts) @ -yes with chest pain and hypertension (Reed Reed) Reevaluation #5: Differential Chest Pain: Stable Angina, Unstable Angina, STEMI, NSTEMI Aortic Dissection, Pneumothorax, Musculoskeletal, Esophageal Spasm GERD, Cholecystitis, Pancreatitis, Zoster, this is not meant to be an all-inclusive list. (Reed Reed) Medical Decision Making - Lab Data Result diagrams: 03/28/23 18:20 <Jay Canada - Last Filed: 03/28/23 20:06> - Lab Data Result diagrams: 03/28/23 20:29 03/28/23 18:20 - EKG Data -: EKG Interpreted by Me (EKG is sinus 77 VT 123 QRS 80 QTC 386) - Radiology Data Radiology results: report reviewed (Chest x-rays negative for acute disease), image reviewed <Reed Reed - Last Filed: 04/03/23 16:50> - Medical Decision Making 47 female nonspecific chest pain but she does have negative troponin here in the ER, normal x-ray patient can be discharged home she feels currently well, Dese for further evaluation management (Reed Reed) - Lab Data Lab Results 03/28/23 03/28/23 03/28/23 Range/Units 17:54 18:20 20:29 WBC 10.1 (3.8-10.6) k/uL RBC 3.95 (3.80-5.40) m/uL Hgb 12.5 (11.4-16.0) gm/dL Hct 35.0 (34.0-46.0) % MCV 88.6 (80.0-100.0) fL MCH 31.7 (25.0-35.0) pg MCHC 35.8 (31.0-37.0) g/dL RDW 12.9 (11.5-15.5) % Plt Count 275 (150-450) k/uL MPV 7.0 Neutrophils % 67 % Lymphocytes % 25 % Monocytes % 4 % Eosinophils % 2 % Basophils % 0 % Neutrophils # 6.8 (1.3-7.7) k/uL Lymphocytes # 2.5 (1.0-4.8) k/uL Monocytes # 0.4 (0-1.0) k/uL Eosinophils # 0.2 (0-0.7) k/uL Basophils # 0.0 (0-0.2) k/uL PT (10.0-12.5) sec INR (<1.2) APTT (22.0-30.0) sec Sodium 140 (137-145) mmol/L Potassium 3.8 (3.5-5.1) mmol/L Chloride 107 (98-107) mmol/L Carbon Dioxide 20 L (22-30) mmol/L Anion Gap 13 mmol/L BUN 9 (7-17) mg/dL Creatinine 0.56 (0.52-1.04) mg/dL Est GFR (CKD-EPI)AfAm >90 (>60 ml/min/1.73 sqM) Est GFR (CKD-EPI)NonAf >90 (>60 ml/min/1.73 sqM) Glucose 105 H (74-99) mg/dL Calcium 9.7 (8.4-10.2) mg/dL Magnesium 1.9 (1.6-2.3) mg/dL Total Bilirubin 0.5 (0.2-1.3) mg/dL AST 23 (14-36) U/L ALT 20 (4-34) U/L Alkaline Phosphatase 70 (38-126) U/L Troponin I <0.012 (0.000-0.034) ng/mL Total Protein 8.0 (6.3-8.2) g/dL Albumin 4.5 (3.5-5.0) g/dL 03/28/23 03/28/23 Range/Units 20:29 20:29 WBC (3.8-10.6) k/uL RBC (3.80-5.40) m/uL Hgb (11.4-16.0) gm/dL Hct (34.0-46.0) % MCV (80.0-100.0) fL MCH (25.0-35.0) pg MCHC (31.0-37.0) g/dL RDW (11.5-15.5) % Plt Count (150-450) k/uL MPV Neutrophils % % Lymphocytes % % Monocytes % % Eosinophils % % Basophils % % Neutrophils # (1.3-7.7) k/uL Lymphocytes # (1.0-4.8) k/uL Monocytes # (0-1.0) k/uL Eosinophils # (0-0.7) k/uL Basophils # (0-0.2) k/uL PT 10.1 (10.0-12.5) sec INR 0.9 (<1.2) APTT 21.8 L (22.0-30.0) sec Sodium (137-145) mmol/L Potassium (3.5-5.1) mmol/L Chloride (98-107) mmol/L Carbon Dioxide (22-30) mmol/L Anion Gap mmol/L BUN (7-17) mg/dL Creatinine (0.52-1.04) mg/dL Est GFR (CKD-EPI)AfAm (>60 ml/min/1.73 sqM) Est GFR (CKD-EPI)NonAf (>60 ml/min/1.73 sqM) Glucose (74-99) mg/dL Calcium (8.4-10.2) mg/dL Magnesium (1.6-2.3) mg/dL Total Bilirubin (0.2-1.3) mg/dL AST (14-36) U/L ALT (4-34) U/L Alkaline Phosphatase (38-126) U/L Troponin I <0.012 (0.000-0.034) ng/mL Total Protein (6.3-8.2) g/dL Albumin (3.5-5.0) g/dL Disposition <Jay Canada - Last Filed: 03/28/23 20:06> Is patient prescribed a controlled substance at d/c from ED?: No Time of Disposition: 20:35 <Reed Reed - Last Filed: 04/03/23 16:50> Clinical Impression: Hypertension, Chest pain Disposition: HOME SELF-CARE Condition: Good Instructions (If sedation given, give patient instructions): Hypertension (ED) Prescriptions: lisinopriL [Prinivil] 10 mg PO DAILY #30 tab Referrals: Eliazar Prieto DO [Primary Care Provider] - 1-2 days
--- NOTE | 2023-03-28 19:58 | XR ---
EXAMINATION TYPE: XR chest 2V DATE OF EXAM: 03/28/2023 COMPARISON: 06/25/2015 HISTORY: Chest pain TECHNIQUE: Frontal and lateral views of the chest are obtained. FINDINGS: There is no focal air space opacity, pleural effusion, or pneumothorax seen. The cardiac silhouette size is within normal limits. The osseous structures are intact. IMPRESSION: No acute cardiopulmonary process.
[2023-03-28] MEDS ORDERED: lisinopriL 10 MG TAB PO STA (20:36)
[2023-03-28 21:24] LABS: Basophils % (A) 0 %; Eosinophils # (A) 0.2 k/uL (0-0.7); Eosinophils % (A) 2 %; HGB 12.5 gm/dL (11.4-16.0); Lymphocytes # (A) 2.5 k/uL (1.0-4.8); Lymphocytes % (A) 25 %; MCH 31.7 pg (25.0-35.0); MCHC 35.8 g/dL (31.0-37.0); MCV 88.6 fL (80.0-100.0); Monocytes # (A) 0.4 k/uL (0-1.0); Monocytes % (A) 4 %; Neutrophils # (A) 6.8 k/uL (1.3-7.7); Neutrophils % (A) 67 %; Platelet Count 275 k/uL (150-450); RBC 3.95 m/uL (3.80-5.40); RDW 12.9 % (11.5-15.5); WBC 10.1 k/uL (3.8-10.6)
[2023-03-28 21:38] LABS: INR 0.9 (<1.2); Prothrombin Time 10.1 sec (10.0-12.5)
[2023-03-28 21:45] VITALS: BP 144/76; PULSE 76; RESP 18
[2023-03-28 22:27] LABS: Partial Thromboplastin Time 21.8 sec (22.0-30.0)
== END 2023-03-28 21:31 | disposition home or self-care (01) ==
LOC: EC 17:19
DX: I10 Essential (primary) hypertension (principal); R07.89 Other chest pain; F41.9 Anxiety disorder, unspecified; F32.A Depression, unspecified; F90.9 Attention-deficit hyperactivity disorder, unspecified type; Z79.899 Other long term (current) drug therapy; Z88.0 Allergy status to penicillin; Z88.8 Allergy status to other drugs, medicaments and biological substances
CPT/HCPCS: 36415; 71046; 80053; 83735; 84484; 85025; 85610; 85730; 93005; 99284

== ENCOUNTER → 2023-04-14 | Outpatient (CLI) | payer OTHER ==
[2023-04-14 21:06] LABS: ALT 23 U/L (8-44); AST 24 U/L (13-35); Albumin 4.6 g/dL (3.8-4.9); Albumin/Globulin Ratio 1.48 Ratio (1.60-3.17); Alkaline Phosphatase 86 U/L (41-126); Blood Urea Nitrogen 13.2 mg/dL (9.0-27.0); Calcium 9.9 mg/dL (8.7-10.3); Carbon Dioxide 25.6 mmol/L (21.6-31.8); Chloride 101 mmol/L (96-109); Globulin 3.1 g/dL (1.6-3.3); Glucose 99 mg/dL (70-110); Potassium 3.9 mmol/L (3.5-5.5); Sodium 141 mmol/L (135-145); Total Bilirubin 0.6 mg/dL (0.3-1.2); Total Protein 7.7 g/dL (6.2-8.2)
== END | disposition home or self-care (01) ==
LOC: LABWHC1 12:09
PROVIDERS: ATTEND Internal Medicine
DX: I10 Essential (primary) hypertension (principal)
CPT/HCPCS: 36415; 80053

== ENCOUNTER 2023-10-06 16:55 | Emergency (ER) | payer OTHER ==
[2023-10-06 17:15] VITALS: RESP 18; TEMP 98.2
--- NOTE | 2023-10-06 17:17 | ED ---
General Adult HPI - General Chief complaint: Back Pain/Injury Stated complaint: Back Pain Time Seen by Provider: 10/06/23 17:12 Source: patient, RN notes reviewed Mode of arrival: ambulatory Limitations: no limitations - History of Present Illness Initial comments: This is a 48-year-old male presents emergency department from urgent care for chief complaint of right thoracic back pain with radiation to her abdomen. Patient states this pain has been present since Monday and has been worsening and is now constant. She denies nausea, vomiting, fevers or chills. Patient states that she had a cholecystectomy with no complications approximately 4 to 5 years ago. denies recent trauma or injury to the back. Denies dysuria, hematuria, increase in urinary frequency or urgency. She denies hematochezia, constipation or diarrhea. - Related Data Home Medications Medication Instructions Recorded Confirmed LORazepam [Ativan] 2 mg PO BID PRN 06/25/15 12/20/21 Sertraline [Zoloft] 150 mg PO HS 06/25/15 12/20/21 Acetaminophen Tab [Tylenol Tab] 1,000 mg PO Q6HR PRN 05/28/17 12/20/21 buPROPion HCL [Wellbutrin XL] 300 mg PO HS 05/28/17 12/20/21 Previous Rx's Medication Instructions Recorded Ibuprofen [Motrin] 600 mg PO Q6HR PRN #30 tab 12/20/21 lisinopriL [Prinivil] 10 mg PO DAILY #30 tab 03/28/23 Allergies Allergy/AdvReac Type Severity Reaction Status Date / Time amoxicillin [From Augmentin] AdvReac Nausea & Verified 10/06/23 17:15 Vomiting clavulanic acid AdvReac Nausea & Verified 10/06/23 17:15 [From Augmentin] Vomiting Review of Systems ROS Statement: Those systems with pertinent positive or pertinent negative responses have been documented in the HPI. ROS Other: All systems not noted in ROS Statement are negative. 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 History of Any Multi-Drug Resistant Organisms: None Reported Past Surgical History: No Surgical Hx Reported Additional Past Surgical History / Comment(s): LAPROSCOPY Past Anesthesia/Blood Transfusion Reactions: No Reported Reaction Past Psychological History: ADD/ADHD, Anxiety, Depression Smoking Status: Never smoker Past Alcohol Use History: Occasional Past Drug Use History: None Reported - Past Family History Mother Family Medical History: No Reported History Father Family Medical History: Coronary Artery Disease (CAD), Hypertension Additional Family Medical History / Comment(s): CARDIAC STENTS,STROKE BEHIND HIS EYE General Exam - General Exam Comments Initial Comments: Visual Physical Exam Vital signs reviewed General: Well-appearing, nontoxic, no acute distress. Head: Normocephalic, atraumatic Eyes: PERRLA, EOMI ENT: Airway patent Chest: Nonlabored breathing Skin: No visual rash, normal skin tone Neuro: Alert and oriented 3 Musculoskeletal: No gross abnormalities Limitations: no limitations General appearance: alert, in no apparent distress Head exam: Present: atraumatic, normocephalic, normal inspection Eye exam: Present: normal appearance, PERRL, EOMI. Absent: scleral icterus, conjunctival injection, periorbital swelling ENT exam: Present: normal exam, mucous membranes moist Neck exam: Present: normal inspection. Absent: tenderness, meningismus, lymphadenopathy Respiratory exam: Present: normal lung sounds bilaterally. Absent: respiratory distress, wheezes, rales, rhonchi, stridor Cardiovascular Exam: Present: regular rate, normal rhythm, normal heart sounds. Absent: systolic murmur, diastolic murmur, rubs, gallop, clicks GI/Abdominal exam: Present: soft, tenderness (RUQ), normal bowel sounds. Absent: distended, guarding, rebound, rigid Extremities exam: Present: normal inspection, full ROM, normal capillary refill. Absent: tenderness, pedal edema, joint swelling, calf tenderness Back exam: Present: normal inspection, full ROM, tenderness (thoracic, mid), muscle spasm. Absent: CVA tenderness (R), CVA tenderness (L) Neurological exam: Present: alert, oriented X3, CN II-XII intact Psychiatric exam: Present: normal affect, normal mood Skin exam: Present: warm, dry, intact, normal color. Absent: rash Course Vital Signs 10/06/23 10/06/23 10/06/23 17:12 20:18 21:52 Temperature 98.2 F Pulse Rate 95 82 81 Respiratory 18 18 18 Rate Blood Pressure 138/83 117/67 143/86 O2 Sat by Pulse 99 98 Oximetry Medical Decision Making - Medical Decision Making I completed the quick note portion of this chart signed Cristin Toney PA-C Was pt. sent in by a medical professional or institution ([facility], [facility], urgent care, hospital, or usp...) When possible be specific @ -No Did you speak to anyone other than the patient for history (EMS, parent, family, police, friend...)? What history was obtained from this source @ -No Did you review nursing and triage notes (agree or disagree)? Why? @ -I reviewed and agree with nursing and triage notes Were old charts reviewed (outside hosp., previous admission, EMS record, old EKG, old radiological studies, urgent care reports/EKG's, usp records)? Report findings @ -No old charts were reviewed Differential Diagnosis (chest pain, altered mental status, abdominal pain women, abdominal pain men, vaginal bleeding, weakness, fever, dyspnea, syncope, headache, dizziness, GI bleed, back pain, seizure, CVA, palpatations, mental health, musculoskeletal)? @ -Differential Back Pain: Strain, zoster, cauda equina syndrome, epidural abscess, vertebral osteomyelitis, discitis, fracture, subluxation, disc herniation, DJD, spinal stenosis, dissection, AAA, pancreatitis, peptic ulcer disease, pyelonephritis, kidney stone Appendicitis, Cholecystitis, diverticulosis, ischemic bowel, pancreatitis, hepatitis, UTI, gastroenteritis, AAA, incarcerated hernia, bowel obstruction, constipation, inflammatory bowel, hepatitis, peptic ulcer disease, splenic infarction, perforated viscus, vulvitis, ovarian torsion, PID, kidney stone, placenta abruption, this is not meant to be an all-inclusive list EKG interpreted by me (3pts min.). @ none X-rays interpreted by me (1pt min.). @ -X-ray right ribs no acute cardiopulmonary process or disease, no acute fractures or dislocations CT interpreted by me (1pt min.). @ -CT of the abdomen pelvis with contrast no acute intra-abdominal process noted U/S interpreted by me (1pt. min.). @ -gallbladder ultrasound liver upperlimits normal to midly enlarged to 17.1 cm, gallbladder surgically absent, no ultrasound evidence of acute process. What testing was considered but not performed or refused? (CT, X-rays, U/S, labs)? Why? @ -None What meds were considered but not given or refused? Why? @ -None Did you discuss the management of the patient with other professionals (professionals i.e. , PA, [facility], lab, RT, psych nurse, school social worker, marketing trainee, teacher, flight communications officer, machine adjuster leader case trim)? Give summary @ -No Was smoking cessation discussed for >3mins.? @ -No Was critical care preformed (if so, how long)? @ -No Were there social determinants of health that impacted care today? How? (Homelessness, low income, unemployed, alcoholism, drug addiction, transportation, low edu. Level, literacy, decrease access to med. care, longterm, rehab)? @ -No Was there de-escalation of care discussed even if they declined (Discuss DNR or withdrawal of care, Hospice)? DNR status @ -No What co-morbidities impacted this encounter? (DM, HTN, Smoking, COPD, CAD, Cancer, CVA, ARF, Chemo, Hep., AIDS, mental health diagnosis, sleep apnea, morbid obesity)? @ -None Was patient admitted / discharged? Hospital course, mention meds given and route, prescriptions, significant lab abnormalities, going to OR and other pertinent info. @ -Discharge. 48-year-old female with lower thoracic back pain with radiation into the abdomen. Evaluation, patient's pain is reproducible on palpation and this most notable of the right mid back and right upper quadrant. She is pain medication pending labs and imaging. Ultrasound negative for acute process, x- ray negative. Interpretation patient's labs she has a mild leukocytosis 14.6 and elevated neutrophils of 10.9. CMP including amylase and lipase within normal limits. Urinalysis remarkable for potential infection however there is contamination with 14 squamous epithelial cells. Discussed with patient at bedside offer CT of the abdomen for further evaluation of unspecified abdominal pain at this point. Patient active CT. CT negative for acute process. Patient's urine will be sent for culture to for sure if there is potential infection. All questions answered at bedside and strict return parameters discussed with patient she is verbalized understanding. Case discussed with Dr. Busby Undiagnosed new problem with uncertain prognosis? @ -No Drug Therapy requiring intensive monitoring for toxicity (Heparin, Nitro, I nsulin, Cardizem)? @ -No Were any procedures done? @ -No Diagnosis/symptom? @ -Abdominal pain Acute, or Chronic, or Acute on Chronic? @ -Acute Uncomplicated (without systemic symptoms) or Complicated (systemic symptoms)? @ -Uncomplicated Side effects of treatment? @ -No Exacerbation, Progression, or Severe Exacerbation? @ -No Poses a threat to life or bodily function? How? (Chest pain, USA, MS, pneumonia, PE, COPD, DKA, ARF, appy, cholecystitis, CVA, Diverticulitis, Homicidal, Suicidal, threat to staff... and all critical care pts) @ -No - Lab Data Result diagrams: 10/06/23 18:30 10/06/23 18:30 Lab Results 10/06/23 10/06/23 10/06/23 Range/Units 18:30 18:30 18:30 WBC 13.6 H (3.8-10.6) k/uL RBC 4.34 (3.80-5.40) m/uL Hgb 13.2 (11.4-16.0) gm/dL Hct 39.7 (34.0-46.0) % MCV 91.5 (80.0-100.0) fL MCH 30.4 (25.0-35.0) pg MCHC 33.2 (31.0-37.0) g/dL RDW 13.2 (11.5-15.5) % Plt Count 341 (150-450) k/uL MPV 6.7 Neutrophils % 80 % Lymphocytes % 13 % Monocytes % 4 % Eosinophils % 1 % Basophils % 0 % Neutrophils # 10.9 H (1.3-7.7) k/uL Lymphocytes # 1.8 (1.0-4.8) k/uL Monocytes # 0.6 (0-1.0) k/uL Eosinophils # 0.2 (0-0.7) k/uL Basophils # 0.0 (0-0.2) k/uL Sodium 138 (137-145) mmol/L Potassium 3.9 (3.5-5.1) mmol/L Chloride 104 (98-107) mmol/L Carbon Dioxide 23 (22-30) mmol/L Anion Gap 11 mmol/L BUN 9 (7-17) mg/dL Creatinine 0.64 (0.52-1.04) mg/dL Est GFR (CKD-EPI)AfAm >90 (>60 ml/min/1.73 sqM) Est GFR (CKD-EPI)NonAf >90 (>60 ml/min/1.73 sqM) Glucose 74 (74-99) mg/dL Calcium 9.7 (8.4-10.2) mg/dL Total Bilirubin 0.9 (0.2-1.3) mg/dL AST 21 (14-36) U/L ALT 14 (4-34) U/L Alkaline Phosphatase 75 (38-126) U/L Total Protein 7.8 (6.3-8.2) g/dL Albumin 4.9 (3.5-5.0) g/dL Amylase 51 (30-110) U/L Lipase 106 (23-300) U/L Urine Color Yellow Urine Appearance Turbid H (Clear) Urine pH 6.0 (5.0-8.0) Ur Specific [place] 1.022 (1.001-1.035) Urine Protein Trace H (Negative) Urine Glucose (UA) Negative (Negative) Urine Ketones Negative (Negative) Urine Blood Negative (Negative) Urine Nitrite Negative (Negative) Urine Bilirubin Negative (Negative) Urine Urobilinogen <2.0 (<2.0) mg/dL Ur Leukocyte Esterase Moderate H (Negative) Urine RBC 3 (0-5) /hpf Urine WBC 24 H (0-5) /hpf Ur Squamous Epith Cells 14 H (0-4) /hpf Urine Bacteria Many H (None) /hpf Urine Mucus Moderate H (None) /hpf Disposition Clinical Impression: Back pain, Abdominal pain Disposition: HOME SELF-CARE Condition: Good Instructions (If sedation given, give patient instructions): Abdominal Pain (ED) Additional Instructions: return to the emergency department for any new or worsening symptoms. Continue Tylenol Motrin at home for symptomatic relief. Follow-up with your primary care provider next week for further evaluation. Is patient prescribed a controlled substance at d/c from ED?: No Referrals: Eliazar Prieto DO [Primary Care Provider] - 1-2 days Time of Disposition: 21:24
--- NOTE | 2023-10-06 18:36 | US ---
EXAMINATION TYPE: US gallbladder DATE OF EXAM: 10/06/2023 COMPARISON: NONE CLINICAL INDICATION: Female, 48 years old with history of right upper quadrant abdominal pain with ra diation into the back.; rt back pain x 2 days TECHNIQUE: Multiple sonographic images of the right upper quadrant are obtained. 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 Gallbladder is surgically absent. No ultrasound evidence of acute process
[2023-10-06 18:53] LABS: Basophils % (A) 0 %; Eosinophils # (A) 0.2 k/uL (0-0.7); Eosinophils % (A) 1 %; HCT 39.7 % (34.0-46.0); HGB 13.2 gm/dL (11.4-16.0); Lymphocytes # (A) 1.8 k/uL (1.0-4.8); Lymphocytes % (A) 13 %; MCH 30.4 pg (25.0-35.0); MCHC 33.2 g/dL (31.0-37.0); MCV 91.5 fL (80.0-100.0); Mean Platelet Volume 6.7; Monocytes # (A) 0.6 k/uL (0-1.0); Monocytes % (A) 4 %; Neutrophils # (A) 10.9 k/uL (1.3-7.7); Neutrophils % (A) 80 %; Platelet Count 341 k/uL (150-450); RBC 4.34 m/uL (3.80-5.40); RDW 13.2 % (11.5-15.5); WBC 13.6 k/uL (3.8-10.6)
[2023-10-06] MEDS: HYDROmorphone 0.5 MG/0.5 ML SYRINGE IVP STA ×2 (18:57→21:47)
[2023-10-06 19:22] LABS: Appearance,Urine Turbid (Clear); Bacteria,Urine Many /hpf; Bilirubin,Urine Negative (Negative); Blood,Urine Negative (Negative); Color,Urine Yellow; Glucose,Urine (UA) Negative (Negative); Ketones,Urine Negative (Negative); Leukocyte Esterase,Urine Moderate (Negative); Mucus,Urine Moderate /hpf; Nitrite,Urine Negative (Negative); Protein,Urine Trace (Negative); RBC,Urine 3 /hpf (0-5); Specific Gravity,Urine 1.022 (1.001-1.035); Squamous Epithelial Cell,Urine 14 /hpf (0-4); Urobilinogen,Urine <2.0 mg/dL (<2.0); WBC,Urine 24 /hpf (0-5)
[2023-10-06 19:25] LABS: ALT 14 U/L (4-34); AST 21 U/L (14-36); African American GFR (CKD) >90 (>60 ml/min/1.73 sqM); Albumin 4.9 g/dL (3.5-5.0); Alkaline Phosphatase 75 U/L (38-126); Amylase 51 U/L (30-110); Anion Gap 11 mmol/L; Blood Urea Nitrogen 9 mg/dL (7-17); Calcium 9.7 mg/dL (8.4-10.2); Carbon Dioxide 23 mmol/L (22-30); Chloride 104 mmol/L (98-107); Glucose 74 mg/dL (74-99); Lipase 106 U/L (23-300); Non-African American GFR(CKD) >90 (>60 ml/min/1.73 sqM); Potassium 3.9 mmol/L (3.5-5.1); Sodium 138 mmol/L (137-145); Total Bilirubin 0.9 mg/dL (0.2-1.3); Total Protein 7.8 g/dL (6.3-8.2)
--- NOTE | 2023-10-06 19:30 | XR ---
EXAMINATION TYPE: XR ribs RT w pa chest x-ray DATE OF EXAM: 10/06/2023 6:39 PM CLINICAL INDICATION:Female, 48 years old with history of right posterior rib pain; [facility] COMPARISON: TECHNIQUE: XR ribs RT w pa chest x-ray; Frontal and oblique views of the ribs with frontal chest radi ograph. FINDINGS: The ribs have a normal appearance. No evidence of displaced rib fracture. Overall, the racheal gs are clear. The cardiac silhouette is normal in size. The remaining osseous structures are intact . IMPRESSION: No acute osseous pathology.
--- NOTE | 2023-10-06 21:22 | CT ---
EXAMINATION TYPE: CT abdomen pelvis wo con CT DLP: 563.8 mGycm, Automated exposure control for dose reduction was used. DATE OF EXAM: 10/06/2023 8:37 PM COMPARISON: CT abdomen pelvis most recent from CLINICAL INDICATION:Female, 48 years old with history of ab/back pain; rt flank pain TECHNIQUE: Axial CT abdomen pelvis wo con;Sagittal and coronal reformats were created on a separate workstation. Contrast used: mL of , (none if empty) Oral contrast used: without Oral Contrast (none if empty) FINDINGS: LOWER CHEST: Unremarkable ABDOMEN LIVER: Unremarkable GALLBLADDER AND BILE DUCTS: Unremarkable. PANCREAS: Unremarkable. SPLEEN: Unremarkable. ADRENAL GLANDS: Unremarkable. KIDNEYS AND URETERS: No evidence of hydronephrosis or renal calculus. The ureters are unremarkable. PELVIS BLADDER: Unremarkable REPRODUCTIVE: Unremarkable. ABDOMEN & PELVIS STOMACH AND BOWEL: No evidence of bowel obstruction. PERITONEUM/RETROPERITONEUM: No evidence of pneumoperitoneum or free fluid. VASCULATURE: No evidence of aortic aneurysm. MUSCULOSKELETAL: No acute osseous abnormalities LYMPH NODES: No gross evidence for lymphadenopathy. SOFT TISSUE/ABDOMINAL WALL: Unremarkable IMPRESSION: 1. Acute process is not appreciated. There is no finding appreciated which would account for patient 's symptoms.
[2023-10-06 21:55] VITALS: BP 143/86; PULSE 81
== END 2023-10-06 22:05 | disposition home or self-care (01) ==
LOC: EC 16:55
DX: R10.11 Right upper quadrant pain (principal); M54.9 Dorsalgia, unspecified; Z88.0 Allergy status to penicillin; Z88.8 Allergy status to other drugs, medicaments and biological substances
CPT/HCPCS: 36415; 80053; 82150; 83690; 85025; 81001; 71101; 76705; 74176; 99284; 96374; 96376; J1170; 87086

== ENCOUNTER → 2023-10-11 | Outpatient (CLI) | payer OTHER ==
--- NOTE | 2023-10-13 11:26 | MR ---
EXAMINATION TYPE: MR thoracic spine wo/w con DATE OF EXAM: 10/11/2023 8:52 PM CLINICAL INDICATION:Female, 48 years old with history of M54.6 PAIN IN THORACIC SPINE; [facility], Mid back pain, Right flank pain, x1 week COMPARISON: 10/06/2023 TECHNIQUE: Multi planar, multi sequence imaging was performed utilizing: T1-weighted, short-tau inver ashly recovery and T2-weighted of the thoracic spine. IV Contrast: 8 cc Gadavist (none if empty) FINDINGS: Alignment: Mild scoliosis changes of the spine.. Vertebral bodies have preserved heights. Spinal cord: Spinal cord is within normal limits for signal. Discs: Intervertebral disc signal is maintained. No evidence of significant spinal canal or neural fo raminal stenosis. There is no evidence of extradural defects or central spinal canal narrowing at any thoracic vertebral body level. No abnormal postcontrast enhancement. Osseous structures: Mild bony edema within the T9 and T10 right transverse processes with edema in th e interspinous ligament. There is mild postcontrast enhancement within this region. Multilevel osteop hyte formation and facet joint arthropathy. Scattered disc space narrowing. IMPRESSION: 1. Abnormal bony edema with post contrast enhancement within T9 right pedicle greater than left as w ell as T10 right pedicle greater than left. There is some edema within the interspinous ligament also . Correlate for back injury. 2. Mild multilevel degeneration changes spine. No evidence for abnormal cord signal, or significant spinal canal or neural foraminal stenosis.
== END | disposition home or self-care (01) ==
LOC: RADMRIMAIN 18:59
PROVIDERS: ATTEND Internal Medicine
DX: M51.34 Other intervertebral disc degeneration, thoracic region (principal); R60.0 Localized edema
CPT/HCPCS: 72157; A9585

== ENCOUNTER → 2023-10-20 | Outpatient (CLI) | payer OTHER ==
--- NOTE | 2023-11-14 11:32 | MM ---
Reason for Exam: Screening (asymptomatic). Last mammogram was performed 2 year(s) and 11 month(s) ago. Patient History: Menarche at age 14. First Full-Term at age 29. Hormonal Contraceptives for 4 years from age 18 until age 22. Risk Values: Caridad 5 year model risk: 1.0%. NCI Lifetime model risk: 10.3%. Prior Study Comparison: 11/23/2020 Bilateral Screening Mammogram, [facility]. Tissue Density: There are scattered areas of fibroglandular density. Findings: Analyzed By CAD. Right breast: There is no suspicious group of microcalcifications or new suspicious mass. Left breast: There is no suspicious group of microcalcifications or new suspicious mass. Overall Assessment: Negative, BI-RAD 1 Management: Screening Mammogram of both breasts in [address] [facility] will attempt to contact patient to return for supplemental views and ultrasound if indicated. Patient should continue monthly self-breast exams. A clinical breast exam by your physician is recommended on an annual basis. This exam should not preclude additional follow-up of suspicious palpable abnormalities. Note on Caridad scores and lifetime risk: 1. A Caridad score greater than 3% is considered moderate risk. If this is the case, consider specialist referral to assess eligibility for a risk reducing agent. 2. If overall lifetime risk for the development of breast cancer is 20% or higher, the patient may qualify for future screening with alternating mammogram and breast MRI. Electronically signed and approved by: Robbie Oleary DO
== END | disposition home or self-care (01) ==
LOC: RADMAMWWP 12:00
PROVIDERS: ATTEND Internal Medicine
DX: Z12.31 Encounter for screening mammogram for malignant neoplasm of breast (principal); R92.323 Mammographic fibroglandular density, bilateral breasts
CPT/HCPCS: 77067

== ENCOUNTER → 2023-10-20 | Outpatient (CLI) | payer OTHER | END | disposition home or self-care (01) | LOC: LABPRL 12:34 | PROVIDERS: ATTEND Internal Medicine | DX: M54.9 Dorsalgia, unspecified (principal) | CPT/HCPCS: 80053; 85025 ==